=== PATIENT | male | born 1950 | race Caucasian/White ===

== ENCOUNTER → 2019-09-24 14:47 | Outpatient (BNVA) | payer MEDICARE, SELFPAY | PROVIDERS: Family Provider Internal Medicine; PCP Internal Medicine; Referring Provider Internal Medicine; Visit Provider Urology | DX: R97.20 Elevated prostate specific antigen [PSA] (principal) | CPT/HCPCS: 81001 ==

== ENCOUNTER → 2019-10-04 14:07 | Outpatient (BNVA) | payer MEDICARE, SELFPAY | PROVIDERS: Family Provider Internal Medicine; PCP Internal Medicine; Visit Provider Urology | DX: R97.20 Elevated prostate specific antigen [PSA] (principal) | CPT/HCPCS: 88305 ==

== ENCOUNTER 2019-10-18 07:02 | Outpatient (CLI) | payer MEDICARE, SELFPAY ==
--- NOTE | 2019-10-18 07:34 | CT_ITS ---
WS: [id number] CT ABDOMEN PELVIS TECHNIQUE: Noncontrast CT of the abdomen and contrast-enhanced CT of the abdomen and pelvis with roderick nal and sagittal reformatted images. CLINICAL INFORMATION: ELEVATED PSA COMPARISON: None. DLP: 1049.[address] scans at [facility] use at least one of these dose optimization techniques: automat ed exposure control; mA and/or kV adjustment per patient size (includes targeted exams where dose is matched to clinical indication); or iterative reconstruction. FINDINGS: Liver is normal in appearance. Small right hepatic cyst. Normal portal vein and splenic vein. Normal spleen. Small esophageal hiatal hernia. Small nodule or fibrosis right lower lobe measuring 6 mm. Rig ht adrenal gland is normal. Left adrenal adenoma measuring 16 mm. Normal renal parenchymal enhancemen t. No hydronephrosis. Mild atrophy of the pancreas. Normal caliber abdominal aorta. No periaortic lym phadenopathy. Aortic calcification. Diffuse bladder wall thickening likely due to bladder outlet obstruction. Heterogeneously enhancing e nlarged prostate measuring 3.2 x 3.5 x 5.2 CCM. Recommend correlation PSA. No pelvic or inguinal lymp hadenopathy. Disc osteophyte complex L5-S1 with mild central canal stenosis and moderate bilateral fo raminal narrowing. Slight retrolisthesis L2 on L3 with moderate central canal stenosis. CT/CT abdomen pelvis wo/w [id number] IMPRESSION: 1. Normal renal parenchymal enhancement. No hydronephrosis. 2. Diffuse bladder wall thickening likely due to bladder outlet obstruction. H eterogeneously enhancing enlarged prostate measuring 3.2 x 3.5 x 5.2 CCM. Recom mend correlation PSA. 3. Noncalcified nodule right lower lobe measuring 6 mm. Recommend 6 month foll ow-up chest CT. 4. Incidental left adrenal adenoma measuring 16 mm. 5. Tiny hepatic cyst. 6. No abdominal or pelvic lymphadenopathy.
[2019-10-18 08:23] LABS: Blood Urea Nitrogen 12 mg/dL (8-23); Glomerular Filtration Rate 74.5 mL/min (90-130)
[2019-10-18] MEDS: iohexol 300 mg/mL 100 mL Btl IV (08:47)
== END 2019-10-18 07:03 | disposition home or self-care (01) ==
LOC: RAD 07:04
PROVIDERS: PCP Internal Medicine; Visit Provider Urology
DX: R97.20 Elevated prostate specific antigen [PSA] (principal); K76.89 Other specified diseases of liver; D35.02 Benign neoplasm of left adrenal gland
CPT/HCPCS: 74178; 82565; 84520

== ENCOUNTER 2019-10-31 08:28 | Outpatient (CLI) | payer MEDICARE, SELFPAY ==
--- NOTE | 2019-10-31 11:00 | NM_ITS ---
WS: [id number] NUCLEAR MEDICINE BONE SCAN Radiopharmaceutical: 25.0 Tc-99m MDP mCi IV Injection site: Right antecubital Postinjection imaging delay: hr CLINICAL INFORMATION: ELEVATED PSA COMPARISON: None. 1 FINDINGS: Bone lesions: There are no osseous lesions suspicious for metastatic disease. Soft tissue contours: Normal. Kidneys: Normal. Other findings: Focal intense bony uptake involving the base of the first metatarsal at the TMT joint likely degenerative or inflammatory. Recommend correlation with first metatarsal pain. NM/NM bone scan whole body* [id number] IMPRESSION: 1. No evidence of osseous metastatic disease. 2. Focal intense bony uptake involving the base of first metatarsal at the TMT joint likely degenerative or inflammatory. Recommend correlation with first me tatarsal bone. This is not typical for metastatic disease.
== END 2019-10-31 08:29 | disposition home or self-care (01) ==
LOC: NM 08:31
PROVIDERS: PCP Internal Medicine; Visit Provider Urology
DX: R97.20 Elevated prostate specific antigen [PSA] (principal)
CPT/HCPCS: 78306; A9561

== ENCOUNTER 2019-11-06 11:49 | Outpatient (CLI) | payer MEDICARE, SELFPAY ==
--- NOTE | 2019-11-06 15:23 | ONC CON_ITS ---
Dr. Torres New Patient Note Patient: Ander Odonnell Unit #: [id number]: 1950 Dicatated By: Consuelo Torres M.D.Date of Visit: Nov 06, 2019 Onc MED New Patient/Consult Referring Physician: Dr. Daniel Singletary M.D. History of Present Illness: Mr. 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 Patient underwent CT scan of abdomen pelvis on October 18, 2019 which shows no evidence of pelvic lymphadenopathy and prostate gland size 3.2 x 3.5 x 5.2 cm and noncalcified nodule right lower lobe lung, about 6 cm and a follow-up CT scan in 6 months was recommended. Bone scan done on October 31, 2019 shows no evidence of metastatic disease. Patient was started on bicalutamide 50 mg p.o. daily by urology on October 18, 2019 Patient denies any specific complaints, no fever chills, no nausea or vomiting, no hematuria or dysuria, no melena or hematochezia, no diarrhea or constipation, no hot flashes, tolerating bicalutamide well. Patient used to drink 10-12 beers a day but quit about 6 months ago. And still smoke about a pack a day. Past Medical History: There is no documented medical history. Past Surgical History: Mr. Odonnell's surgical/procedural history consists of TRUSP/bx in 2019. Medications: Amitriptyline HCl 1 Tablet (of 100 mg) Oral daily, Bilberry 1 Capsule Oral daily, blackseed oil 1 Capsule Oral daily, HYDROcodone-Acetaminophen 1 Tablet (of 10-325 mg) Oral q 6 hours PRN, Thiamine HCl 1 Capsule (of 50 mg) Oral daily Allergies: amLODIPine Besylate and Gabapentin. Social History: Mr. Odonnell is . He is a daily smoker who has smoked 1.0 pack/day for 51 years. He is a former drinker. He has indicated exposure to the following products: cigarettes. Family History: Mr. Odonnell's mother is : colon cancer. Mr. Odonnell's father at age 27: drowning. Review Of Symptoms: Constitutional - Appetite is good and weight is stable. No fever, night sweats, or hot flashes. ECOG score is, ENMT - No sinus congestion/drainage. No mouth sores. No sore throat or difficulty swallowing, Hematologic/Lymphatic - No abnormal bruising or bleeding, Respiratory - No shortness of breath. No cough. No pleuritic pain or hemoptysis, Cardiovascular - No angina pain. No palpitations, Gastrointestinal - No nausea or vomiting. No heartburn or acid reflux. No diarrhea or constipation. No blood in the stool or black stools, Genitourinary (M) - No dysuria or hematuria. No urinary frequency. No urgency or incontinence, Musculoskeletal - No joint or bone pain, Neurologic - No headache or dizziness. No numbness or tingling. No other focal neurologic symptoms, Psychiatric - No anxiety or depression. No insomnia. Vital Signs: Performed on Nov 06, 2019 14:10: 71.00 in, 155.4 lbs, 98.9 F, 98, 24, 165/92 mm(hg) (HIGH), 98 %, 0, Performed on Nov 06, 2019 14:10: 21.674 kg/m2, and Performed on Nov 06, 2019 13:25: 1.89 sq.m. Performance Status: 0 - Fully active, able to carry on all predisease activities without restrictions. (ECOG) Physical Examination: ENMT - No mouth sores, no thrush, no jaundice, Respiratory - Lungs are clear to auscultation, Cardiovascular - Regular rate and rhythm of heart, Abdomen - Soft, bowel sounds, Extremities - No visible edema. Lab/Imaging: Most recent lab results are not available for this patient. Impression: Prostatic adenocarcinoma per TRUS P/biopsy done on October 04, 2019 which showed high-volume, high risk aggressive prostate cancer with highest [place] score 5+4 and 90-100% of 3 cores, and also shows Jose score 4+3 in 5 cores, 100% involvement and 4+4 in 2 cores with 100% involvement, with perineural invasion and 1 core( right mid) with a small focus atypical acinar proliferation CT scan of abdomen done on October 18, 2019 shows no evidence of pelvic lymphadenopathy, large prostate gland 3.2 x 3.5 x 5.2 cm. Noncalcified nodule right lower lobe measuring 6 mm follow-up scan in 6 months was recommended. Bone scan done on October 31, 2019 showed no evidence of bone mets. PSA was 50 at the time of diagnosis Plan: -Discussed with patient regarding his disease status and treatment options, clinically patient has high risk prostate cancer, PSA 50, Jose score 5+4 and 3 cores, 90-100% involved with perineural involvement but his CT scan of abdomen pelvis as well as bone scan showed no evidence of metastatic disease, patient is not a candidate for surgical intervention but combined ADT/radiation therapy. Patient is already started on daily bicalutamide on October 18, 2019, we will start Zoladex 10.8 mg every 3 months as neoadjuvant and then continue concurrent with radiation therapy followed by adjuvant therapy for 2 to 3 years as patient is a high risk category. All the side effects possible benefits associated with ADT including but not limited to generalized weakness and fatigue, hair loss, decreased libido, erectile dysfunction, gynecomastia, bone demineralization, hot flashes, were mentioned further teaching will done by chemotherapy nurse, will obtain approval from his insurance prior to the treatment and then I will see him back 1 month after dose of Zoladex with PSA and testosterone and baseline CBC CMP. Patient will see radiation oncology, case was discussed with radiation oncology and planning is to start radiation to his prostate in 10 to 12 weeks of ADT Signed By: Consuelo Torres M.D. <<Signature on File>>
--- NOTE | 2019-11-07 10:30 | N.ONRAD NP_ITS ---
Radiation Oncology New Patient Visit Patient: Ander Odonnell MR#: [id number] : 1950 Age: 69 Sex: Male Dictated by: Dr. Elias Navarro Date of Service: 11/06/2019 Referring Physician(s) : Dr. Daniel Singletary Primary Site: Prostate Diagnosis: Very High Risk Group prostate adenocarcinoma, pretreatment PSA 50.2 ng/mL, Leroy grade 5+4, 13/15 positive cores, extensive perineural invasion, T2b N0 M0 Purpose of Visit: Discuss the role of radiotherapy with curative intent. History of Present Illness: The patient is a 69-year-old male with an elevated PSA of 50.2 ng/mL (09/11/2019) and an abnormal digital rectal examination which revealed concern for tumor involvement on both sides of the prostate. A subsequent transrectal ultrasound guided prostate biopsy (Dr. Singletary 10/07/2019) revealed Jose score 5+4, grade group 5, extensive perineural and epineural invasion, and 13 out of 15 cores were positive for disease. A CT scan of the abdomen pelvis (10/18/2019) revealed a 3.2 x 3.5 x 5.2 cm enlarged prostate with no extracapsular extension, or corresponding pelvic/inguinal lymphadenopathy. A bone scan on (10/31/2019) revealed no evidence of osseous metastatic disease. The patient was initiated on Casodex and subsequently referred to medical oncology and radiation oncology. In consultation today, the patient reports chronic erectile dysfunction unresponsive to Viagra or Levitra, and an international prostate symptom score of 16 indicating moderate urinary symptoms. The patient reports nocturia once per night, significant urinary frequency, a weak stream, and straining approximately half the time. Chief Complaint / History of Present Illness: Current Medications: Amitriptyline HCl, bicalutamide, bilberry, blackseed oil, hYDROcodone-Acetaminophen, thiamine HCl. Allergies: Gabapentin and amLODIPine Besylate. Medical History: No history of collagen vascular disease. No previous radiation therapy. Surgical History: TRUSP/bx on 10/04/2019. Family History: Father is at age 27 having experienced drowning. Mother is having experienced colon cancer. Social History: Last screened on 11/06/2019 - Current every day smoker 1.0 pack/day for 51 years (51 pack years). Last screened on 10/18/2019 - Past drinker. Patient indicated use of the following products: cigarettes. Current Complaints / Review of Systems: ROS Constitutional - Appetite is good and weight is stable. No fever, night sweats, or hot flashes. ECOG score is. ROS ENMT - No sinus congestion/drainage. No mouth sores. No sore throat or difficulty swallowing. ROS Hematologic/Lymphatic - No abnormal bruising or bleeding. ROS Respiratory - No shortness of breath. No cough. No pleuritic pain or hemoptysis. ROS Cardiovascular - No angina pain. No palpitations. ROS Gastrointestinal - No nausea or vomiting. No heartburn or acid reflux. No diarrhea or constipation. No blood in the stool or black stools. ROS Genitourinary (M) - No dysuria or hematuria. No urinary frequency. No urgency or incontinence. ROS Musculoskeletal - No joint or bone pain. ROS Neurologic - No headache or dizziness. No numbness or tingling. No other focal neurologic symptoms. ROS Psychiatric - No anxiety or depression. No insomnia.. Vital Signs: Performed on 11/06/2019 1:25 PM Height - 71.00 in, Weight - 155.4 lbs (high), BSA - 1.89 sq.m, BMI - 21.67, Temperature - 98.9 f (high), Pulse - 98 /min, Respiration - 24 /min, O2 Sat - 98 %, Pain - 0, BP - 165/ 92 mm(hg)(high), Performed on 11/06/2019 2:10 PM BMI - 21.674 kg/m2, Height - 71.00 in, Weight - 155.4 lbs, Temperature - 98.9 f, Pulse - 98, Respiration - 24, O2 Sat - 98 %, Pain - 0 and BP - 165/ 92 mm(hg)(high). Physical Exam: GENERAL:??? The patient is alert, and in no acute distress. HEENT:??? Head is normocephalic. Face is symmetric. External ocular movements are intact. Sclera and conjunctivae are non erythematous. NECK:??? Trachea is midline.??? Thyroid is not enlarged by palpation.??? Digital rectal examination was deferred today per the patient???s request. LYMPH NODES:??? There is no cervical or supraclavicular adenopathy bilaterally. LUNGS:??? Clear to auscultation bilaterally. Respiratory movement is unlabored. HEART:??? Regular rate and rhythm. EXTREMITIES:??? No deformities. NEUROLOGIC:??? Gait and station are normal.??? The patient is well coordinated and strength is equal bilaterally. DESIGN TECH:??? Cranial nerves II-XII are intact and without focal deficits.??? Psych: Affect is normal. Skin: Cursory review of the skin reveals no obvious lesions concerning for malignancy. Performance Status: 0 - Fully active, able to carry on all predisease activities without restrictions. (ECOG) Impression: The patient is a 69-year-old male with a 16.5 year life expectancy per Social Security data tables and a new diagnosis of very high risk adenocarcinoma of the prostate, Jose grade 5+4, grade group 5, pretreatment PSA 50.2 ng/mL, positive extensive perineural invasion, and 13 out of 15 cores were involved with tumor. Pretreatment international prostate symptom score was 19, and prior to initiation of treatment, the patient had chronic erectile dysfunction unresponsive to Viagra/Levitra. This case has been discussed with Dr. Torres, who concurs with a plan of neoadjuvant androgen deprivation therapy, followed by androgen deprivation therapy concurrent with definitive radiation therapy, followed by long-term androgen deprivation therapy. The patient was recently initiated on Casodex therapy, and Dr. Torres is in the process of getting insurance approval to find long-term androgen deprivation therapy. Given the large size of this patient's prostate, I recommend delaying radiation therapy for 3 months in the hopes that combined androgen deprivation therapy will cause the prostate to reduce in size and therefore reduce radiation treatment jimenez. We discussed radiation logistics, treatment side effects, prognosis, and treatment alternatives. Although the final radiation dose and fractionation schedule will be decided upon by the treating radiation oncologist, I recommend treating the prostate, seminal vesicles, and draining lymphatics to 45 Gy in 1.8 Gy fractions, followed by a boost to the prostate and proximal seminal vesicles to an aggregate dose of 79.2 Gy in 44 fractions in accordance with corresponding dosimetric objectives established in the RTOG 0924 protocol. The patient has been instructed to return in 3 months to begin radiation therapy planning. Signed by: Elias Navarro MD 11/07/2019 10:31:49 AM <<Signature on File>> Time spent with patient: CPT Code: CPT Code:
== END 2019-11-06 11:50 | disposition home or self-care (01) ==
LOC: ONCMED 11:52
PROVIDERS: Absent Provider Radiology Radiation Oncology; PCP Internal Medicine; Visit Provider Internal Medicine Hematology & Oncology
DX: C61 Malignant neoplasm of prostate (principal); Z79.899 Other long term (current) drug therapy
CPT/HCPCS: 99203; G0463

== ENCOUNTER 2019-11-14 14:45 | Outpatient (CLI) | payer MEDICARE, SELFPAY ==
[2019-11-14] MEDS: lidocaine 1% INJ 20 mL INJECTION (15:01)
[2019-11-14] MEDS: goserelin acetate 10.8 mg Implant IM (15:11)
== END 2019-11-14 14:46 | disposition home or self-care (01) ==
LOC: ONCMED 14:51
PROVIDERS: PCP Internal Medicine; Visit Provider Radiology Radiation Oncology
DX: C61 Malignant neoplasm of prostate (principal)
CPT/HCPCS: 96372; 96402; J9202

== ENCOUNTER 2019-12-16 05:54 | Outpatient (CLI) | payer MEDICARE, SELFPAY ==
[2019-12-16 12:55] LABS: Prostate Specific Antigen 0.978 ng/mL (0-4); Testosterone Total 2.5 ng/dL (193-740)
[2019-12-16 13:50] LABS: Basophils % 0.5 %; Eosinophils # 0.5 10^3/uL (0.0-0.8); Hematocrit 38.8 % (42.0-52.0); Hemoglobin 13.4 g/dL (11.7-16.6); Lymphocytes # 4.5 10^3/uL (0.8-4.8); Lymphocytes % 51.6 %; Mean Corpuscular HGB Conc 34.5 g/dL (30.0-36.0); Mean Corpuscular Hemoglobin 33.3 pg (28.0-34.0); Mean Corpuscular Volume 96.5 fL (80-94); Mean Platelet Volume 10.8 fL (7.4-10.4); Monocytes # 0.9 10^3/uL (0.2-0.9); Monocytes % 10.4 %; Neutrophils # 2.74 10^3/uL (1.8-7.7); Neutrophils % 31.4 %; Nucleated Red Blood Cells % 0 %; Platelet Count 227 10^3/cmm (130-400); Red Blood Count 4.02 10^6/uL (4.1-5.3); Red Cell Distribution Width 11.9 % (12.1-15.1); White Blood Count 8.7 10^3/uL (4.0-10.0)
[2019-12-16 13:59] LABS: Thyroid Stimulating Hormone 3.34 uIU/mL (0.27-4.20)
--- NOTE | 2019-12-16 16:43 | ONC FU_ITS ---
Dr. Torres follow up note Patient: Ander Odonnell Unit #: [id number]: 1950 Dicatated By: Consuelo Torres M.D.Date of Visit:Dec 16, 2019 Onc Med Follow-up/Prog Note History of Present Illness: Mr. 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 Patient underwent CT scan of abdomen pelvis on October 18, 2019 which shows no evidence of pelvic lymphadenopathy and prostate gland size 3.2 x 3.5 x 5.2 cm and noncalcified nodule right lower lobe lung, about 6 cm and a follow-up CT scan in 6 months was recommended. Bone scan done on October 31, 2019 shows no evidence of metastatic disease. Patient was started on bicalutamide 50 mg p.o. daily by urology on October 18, 2019And Zoladex every 3 month was added on November 14, 2019 Patient used to drink 10-12 beers a day but quit about 6 months ago. And still smoke about a pack a day. Came for follow-up, complaining of generalized weakness and fatigue, no nausea or vomiting, no diarrhea constipation, no fever chills, no dysuria or hematuria, as per patient since he been taking prostate cancer pill is weakness is getting worse. Denies any hot flashes otherwise tolerating Casodex/Zoladex well but with expected side effects Medications: Amitriptyline HCl 1 Tablet (of 100 mg) Oral daily, Bilberry 1 Capsule Oral daily, blackseed oil 1 Capsule Oral daily, HYDROcodone-Acetaminophen 1 Tablet (of 10-325 mg) Oral q 6 hours PRN, Thiamine HCl 1 Capsule (of 50 mg) Oral daily Allergies: amLODIPine Besylate and Gabapentin. Review of Systems: Review of Systems is not available for this patient. Vital Signs: Performed on Dec 16, 2019 13:06 Height - 71.00 in Weight - 155.8 lbs (HIGH) BSA - 1.90 sq.m BMI - 21.73 Temperature - 99.2 F (HIGH) Pulse - 87 /min Respiration - 18 /min BP - 149/92 mm(hg) (HIGH) O2 Sat - 99 % Pain - 6 Performance Status: 1 - No physically strenuous activity, but ambulatory and able to carry out light or sedentary work (e.g. office work, light house work). (ECOG) Physical Examination: ENMT - No mouth sores, no thrush, no jaundice, Respiratory - Lungs are clear to auscultation, Cardiovascular - Regular rate and rhythm of heart, Abdomen - Soft, bowel sounds present, Extremities - No visible edema. Lab/Imaging: Test performed on Dec 16, 2019 11:36 Testosterone, Total 2.5 ng/dL PSA 0.978 ng/mL Impression: Prostatic adenocarcinoma per TRUS P/biopsy done on October 04, 2019 which showed high-volume, high risk aggressive prostate cancer with highest Jose score 5+4 and 90-100% of 3 cores, and also shows Jose score 4+3 in 5 cores, 100% involvement and 4+4 in 2 cores with 100% involvement, with perineural invasion and 1 core( right mid) with a small focus atypical acinar proliferation CT scan of abdomen done on October 18, 2019 shows no evidence of pelvic lymphadenopathy, large prostate gland 3.2 x 3.5 x 5.2 cm. Noncalcified nodule right lower lobe measuring 6 mm follow-up scan in 6 months was recommended. Bone scan done on October 31, 2019 showed no evidence of bone mets. PSA was 50 at the time of diagnosis Started on Casodex on October 18, 2019 and Zoladex on November 14, 2019, Casodex was discontinued on December 16, 2019 because of progressive generalized weakness and fatigue, patient is awaiting radiation therapy Plan: Discussed with patient regarding his last PSA is 0.978 and testosterone is 2.5 compared to PSA around 50 at the time of diagnosis Clinically, patient is doing reasonably well but now concern with progressive generalized weakness and fatigue since started on Casodex and Zoladex was added on November 14, 2019. His PSA showed excellent response no 0.978 compared to around 50 at the time of diagnosis, patient has taken Casodex for more than 2 months and now awaiting radiation therapy, at this point we will consider discontinue Casodex, with that his generalized weakness and fatigue may improve in the meantime we will also repeat CBC and TSH to rule out other possible causes of generalized weakness and fatigue. Patient return to clinic in 2 months with CBC CMP and PSA Signed By: Consuelo Torres M.D. <<Signature on File>>
== END 2019-12-16 05:55 | disposition home or self-care (01) ==
LOC: ONCMED 05:56
PROVIDERS: PCP Internal Medicine; Visit Provider Internal Medicine Hematology & Oncology
DX: C61 Malignant neoplasm of prostate (principal); R97.20 Elevated prostate specific antigen [PSA]; R53.1 Weakness; R53.83 Other fatigue; Z79.818 Long term (current) use of other agents affecting estrogen receptors and estrogen levels
CPT/HCPCS: 36415; 84153; 84403; 84443; 85025; 99214

== ENCOUNTER 2020-03-06 05:36 | Outpatient (RCR) | payer MEDICARE, SELFPAY ==
--- NOTE | 2020-02-11 | CT_ITS ---
Radiation Therapy Planning CT images; total exam DLP: 1048.29 mGy-cm MTDD
[2020-02-11 10:02] LABS: Basophils % 0.5 %; Eosinophils # 0.6 10^3/uL (0.0-0.8); Eosinophils % 6.5 %; Lymphocytes # 3.7 10^3/uL (0.8-4.8); Lymphocytes % 42.5 %; Mean Corpuscular HGB Conc 34.2 g/dL (30.0-36.0); Mean Corpuscular Hemoglobin 33.2 pg (28.0-34.0); Mean Corpuscular Volume 97.2 fL (80-94); Mean Platelet Volume 10.4 fL (7.4-10.4); Monocytes # 0.9 10^3/uL (0.2-0.9); Monocytes % 9.7 %; Neutrophils # 3.54 10^3/uL (1.8-7.7); Neutrophils % 40.6 %; Nucleated Red Blood Cells % 0 %; Platelet Count 229 10^3/cmm (130-400); Red Blood Count 3.91 10^6/uL (4.1-5.3); Red Cell Distribution Width 12.1 % (12.1-15.1); White Blood Count 8.7 10^3/uL (4.0-10.0)
[2020-02-11 10:30] LABS: Alanine Aminotransferase 9 U/L (0-41); Albumin Level 4.3 g/dL (3.5-5.2); Alkaline Phosphatase 82 IU/L (40-130); Anion Gap 10.7 (5-19); Aspartate Amino Transferase 13 U/L (0-40); Blood Urea Nitrogen 11 mg/dL (8-23); Calcium 9.4 mg/dL (8.5-10.5); Carbon Dioxide 30 mmol/L (22-29); Chloride 95 mmol/L (98-107); Globulin 3.2 g/dL (1.3-4.6); Glomerular Filtration Rate 96.4 mL/min (90-130); Glucose 147 mg/dL (65-115); Osmolality Calculated 276 mOsm/kg (285-295); Potassium 3.7 mmol/L (3.5-5.1); Sodium 132 mmol/L (136-145); Total Bilirubin 0.2 mg/dL (0.15-1.2); Total Protein 7.5 g/dL (6.6-8.7)
[2020-02-11] MEDS: lidocaine 1% INJ 20 mL INJECTION (15:39)
[2020-02-11] MEDS: goserelin acetate 10.8 mg Implant IM (15:50)
--- NOTE | 2020-02-11 17:01 | ONC FU_ITS ---
Dr. Torres follow up note Patient: Ander Odonnell Unit #: [id number]: 1950 Dicatated By: Consuelo Torres M.D.Date of Visit:Feb 11, 2020 Onc Med Follow-up/Prog Note History of Present Illness: Mr. Ander Odonnell, is a 69-year-old gentleman with a history of elevated PSA, around 50 and abnormal BRUNO underwent TRUS P/biopsy on October 04, 2019 which showed high-grade AROMATHERAPIST involving 10 out of 11 cores with Jose score ranging from 4+3 in 5 cores, 100% involvement and 4+4, and 2 cores 100% involvement 5.4 in 3 cores 9200% involvement and extensive perineural invasion seen. Patient underwent CT scan of abdomen pelvis on October 18, 2019 which shows no evidence of pelvic lymphadenopathy and prostate gland size 3.2 x 3.5 x 5.2 cm and noncalcified nodule right lower lobe lung, about 6 cm and a follow-up CT scan in 6 months was recommended. Bone scan done on October 31, 2019 shows no evidence of metastatic disease. Patient was started on bicalutamide 50 mg p.o. daily by urology on October 18, 2019 AndAnd discontinued on December 16, 2019 Zoladex every 3 month was started on November 14, 2019 Patient used to drink 10-12 beers a day but quit about 6 months ago. And still smoke about a pack a day .Came for follow-up, denies any specific complaint except hot flashes otherwise tolerating 3 monthly Zoladex well. No new bony pains, no nausea or vomiting, no diarrhea or constipation, patient has seen radiation oncology recently and now being simulated. Medications: Amitriptyline HCl 1 Tablet (of 100 mg) Oral daily, Bilberry 1 Capsule Oral daily, blackseed oil 1 Capsule Oral daily, HYDROcodone-Acetaminophen 1 Tablet (of 10-325 mg) Oral q 6 hours PRN, Thiamine HCl 1 Capsule (of 50 mg) Oral daily Allergies: amLODIPine Besylate and Gabapentin. Review of Systems: Review of Systems is not available for this patient. Vital Signs: Performed on Feb 11, 2020 13:42 Height - 71.00 in Weight - 161.0 lbs (HIGH) BSA - 1.92 sq.m BMI - 22.46 Temperature - 98.9 F (HIGH) Pulse - 105 /min (HIGH) Respiration - 22 /min BP - 167/92 mm(hg) (HIGH) O2 Sat - 98 % Pain - 0 Performance Status: 0 - Fully active, able to carry on all predisease activities without restrictions. (ECOG) Physical Examination: ENMT - No mouth sores, no thrush, no jaundice, Respiratory - Lungs are clear to auscultation, Cardiovascular - Regular rate and rhythm of heart, Abdomen - Soft, bowel sounds present, Extremities - No visible edema. Lab/Imaging: Test performed on Dec 16, 2019 13:30 WBC 8.7 10 3/uL RBC 4.02 10 6/uL HGB 13.4 g/dL HCT 38.8 % MCV 96.5 fL MCH 33.3 pg MCHC 34.5 g/dL RDW 11.9 % Platelet Count 227 10 3/cmm MPV 10.8 fL Neutrophils 2.74 10 3/uL Lymphocytes 4.5 10 3/uL Monocytes 0.9 10 3/uL Eosinophils 0.5 10 3/uL Basophils 0.0 10 3/uL Neutrophil % 31.4 % Lymphocyte % 51.6 % Monocyte % 10.4 % Eosinophil % 6.0 % Basophils % 0.5 % NRBC % 0 % Test performed on Dec 16, 2019 11:36 Testosterone, Total 2.5 ng/dL TSH 3.34 uIU/mL PSA 0.978 ng/mL Impression: Prostatic adenocarcinoma per TRUS P/biopsy done on October 04, 2019 which showed high-volume, high risk aggressive prostate cancer with highest [place] score 5+4 and 90-100% of 3 cores, and also shows [place] score 4+3 in 5 cores, 100% involvement and 4+4 in 2 cores with 100% involvement, with perineural invasion and 1 core( right mid) with a small focus atypical acinar proliferation CT scan of abdomen done on October 18, 2019 shows no evidence of pelvic lymphadenopathy, large prostate gland 3.2 x 3.5 x 5.2 cm. Noncalcified nodule right lower lobe measuring 6 mm follow-up scan in 6 months was recommended. Bone scan done on October 31, 2019 showed no evidence of bone mets. PSA was 50 at the time of diagnosis Started on Casodex on October 18, 2019 and Zoladex on November 14, 2019, Casodex was discontinued on December 16, 2019 because of progressive generalized weakness and fatigue, patient is awaiting radiation therapy Plan: Discussed with patient regarding his labs white blood count 8.7 hemoglobin 13 hematocrit 38 platelets 229,000 CMP within normal limits except sodium 132 and PSA is 0.22 compared to 0.97 on December 16, 2019 and 50 at the time of diagnosis Clinically, patient is doing well with no new signs symptoms, tolerating 3 monthly Zoladex alone well but with expected side effects e.g. off and on hot flashes. His follow-up lab work-up shows excellent response as PSA continue to improve now down to 0.22 compared to 0.9 in December 2019 and more than 50 at time of diagnosis. We will proceed with his next 3 monthly dose of Zoladex today and then he will return to clinic in 3 months with PSA. And will continue with 3 monthly Zoladex for 2 to 3 years as patient is a high risk for recurrence. Patient is being simulated for radiation therapy to the prostate. Signed By: Consuelo Torres M.D. <<Signature on File>>
--- NOTE | 2020-02-17 10:45 | ONCRAD TMN_ITS ---
Radiation Oncology Treatment Management Note Patient Name: Ander Odonnell Date of : 1950 Date of Service: 02/17/2020 Attending Physician: Ortega Dennis M.D. 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 His pretreatment PSA was 50.2 ng/mL. A TRUS biopsy identified a Jose???s Score of 5+4=9. Neoadjuvant GnRh agonist pharmacotherapy (Zoladex 10.8mg) was initiated on November 132019. The patient has received 2 Gy of a prescribed 46 Villanueva to the prostate and regional lymph nodes with an intensity modulated radiotherapy plan utilizing a step and shoot treatment technique. An additional 32 Villanueva will be delivered to the prostate gland subsequent to the initial jimenez. Upon review of systems, he denied any gastrointestinal complaints related to radiotherapy. On physical examination, the patient weighed 163 lbs. His temperature was 99 ???F with a blood pressure of 171/94 mmHg. The pulse was 82 bpm and his respiratory rate was 18. No erythema within the treatment jimenez. Continue pelvic radiotherapy as prescribed. Signed by: Dr. Ortega Dennis 02/17/2020 10:43:02 AM
[2020-02-21 14:30] LABS: Add Urine Culture? No; Bacteria Urine TRACE /hpf; Bilirubin Urine Neg (Negative); Blood Urine Neg (Negative); Glucose Urine UA Norm (Normal); Ketones Urine Negative (Negative); Leukocyte Esterase Urine Negative (Negative); Nitrate Urine Negative (Negative); Protein Urine Neg (Negative); RBC Urine 0-4 /hpf (0-2); Squamous Epithelial Cell Urine 0-4 /hpf (0-5); Urine Appearance Clear (CLEAR); Urine Color Yellow (Yellow); Urobilinogen Urine Norm (Negative); WBC Urine 0-4 /hpf (0-5); pH Urine 6 (5-7)
--- NOTE | 2020-02-25 15:19 | ONCRAD TMN_ITS ---
Radiation Oncology Treatment Management Note Patient Name: Ander Odonnell Date of : 1950 Date of Service: 02/25/2020 Attending Physician: Ortega Dennis M.D. 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 His pretreatment PSA was 50.2 ng/mL. A TRUS biopsy identified a Jose???s Score of 5+4=9. Neoadjuvant GnRh agonist pharmacotherapy (Zoladex 10.8mg) was initiated on November 132019. The patient has received 14 Gy of a prescribed 46 Villanueva to the prostate and regional lymph nodes with an intensity modulated radiotherapy plan utilizing a step and shoot treatment technique. An additional 32 Villanueva will be delivered to the prostate gland subsequent to the initial jimenez. Upon review of systems, he denied any gastrointestinal complaints related to radiotherapy. On physical examination, the patient weighed 163 lbs. His temperature was 99.2 ???F with a blood pressure of 160/92 mmHg. The pulse was 97 bpm and his respiratory rate was 16. No erythema within the treatment jimenez. Continue pelvic radiotherapy as planned. Signed by: Dr. Ortega Dennis 02/25/2020 3:17:50 PM
--- NOTE | 2020-03-04 15:34 | ONCRAD TMN_ITS ---
Radiation Oncology Treatment Management Note Patient Name: Ander Odonnell Date of : 1950 Date of Service: 03/04/2020 Attending Physician: Ortega Dennis M.D. 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 His pretreatment PSA was 50.2 ng/mL. A TRUS biopsy identified a Jose???s Score of 5+4=9. Neoadjuvant GnRh agonist pharmacotherapy (Zoladex 10.8mg) was initiated on November 132019. The patient has received 22 Gy of a prescribed 46 Villanueva to the prostate and regional lymph nodes with an intensity modulated radiotherapy plan utilizing a step and shoot treatment technique. An additional 32 Villanueva will be delivered to the prostate gland subsequent to the initial jimenez. Upon review of systems, he described recurrent diarrhea (present for years) without blood or mucous. On physical examination, the patient weighed 163 lbs. His temperature was 99.2 ???F with a blood pressure of 160/92 mmHg. The pulse was 97 bpm and his respiratory rate was 16. No erythema within the treatment jimenez. Continue pelvic radiotherapy as prescribed. I will order a fecal calprotectin (Crohn???s Disease), TTG-IGA (Celiac Disease), ESR and CRP. Recent labs (CBC & CMP) were previously obtained during a prior medical oncology appointment. Signed by: Dr. Ortega Dennis 03/04/2020 3:32:38 PM
[2020-03-04 19:49] LABS: Erythrocyte Sedimentation Rate 49 mm/hr (0-10)
[2020-03-05 06:21] LABS: C Reactive Protein 10.3 mg/L (0.0-4.9)
== END 2020-03-08 23:59 | disposition home or self-care (01) ==
LOC: ONCMED 05:36
PROVIDERS: Internal Medicine Hematology & Oncology; Absent Provider Radiology Radiation Oncology; PCP Internal Medicine; Visit Provider Radiology Radiation Oncology
DX: Z51.0 Encounter for antineoplastic radiation therapy (principal); C61 Malignant neoplasm of prostate; R97.20 Elevated prostate specific antigen [PSA]; Z79.890 Hormone replacement therapy
CPT/HCPCS: 77300; 77301; 77334; 77336; 77338; 77385; 77386; 77470; 80053; 81001; 83516; 83993; 84153; 85025; 85651; 86140; 96372; 96402; 99215; J9202

== ENCOUNTER 2020-04-03 05:49 | Outpatient (RCR) | payer MEDICARE, SELFPAY ==
--- NOTE | 2020-03-10 14:41 | ONCRAD TMN_ITS ---
Radiation Oncology Treatment Management Note Patient Name: Ander Odonnell Date of : 1950 Date of Service: 03/10/2020 Attending Physician: Ortega Dennis M.D. 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 His pretreatment PSA was 50.2 ng/mL. A TRUS biopsy identified a [place]???s Score of 5+4=9. Neoadjuvant GnRh agonist pharmacotherapy (Zoladex 10.8mg) was initiated on November 132019. The patient has received 30 Gy of a prescribed 46 Villanueva to the prostate and regional lymph nodes with an intensity modulated radiotherapy plan utilizing a step and shoot treatment technique. An additional 32 Villanueva will be delivered to the prostate gland subsequent to the initial jimenez. Upon review of systems, he described minimal diarrhea with Lomotil (one daily) but new onset nocturia (6-7 times). On physical examination, the patient weighed 155 lbs. His temperature was 99.5 ???F with a blood pressure of 164/101 mmHg. The pulse was 99 bpm and his respiratory rate was 20. No erythema within the treatment jimenez. Continue pelvic radiotherapy as planned. I will recommend NSAID trial for nocturia. Signed by: Dr. Ortega Dennis 03/10/2020 2:40:06 PM
--- NOTE | 2020-03-17 15:06 | ONCRAD TMN_ITS ---
Radiation Oncology Treatment Management Note Patient Name: Ander Odonnell Date of : 1950 Date of Service: 03/17/2020 Attending Physician: Ortega Dennis M.D. 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 His pretreatment PSA was 50.2 ng/mL. A TRUS biopsy identified a [place]???s Score of 5+4=9. Neoadjuvant GnRh agonist pharmacotherapy (Zoladex 10.8mg) was initiated on November 132019. The patient has received 40 Gy of a prescribed 46 Villanueva to the prostate and regional lymph nodes with an intensity modulated radiotherapy plan utilizing a step and shoot treatment technique. An additional 32 Villanueva will be delivered to the prostate gland subsequent to the initial jimenez. Upon review of systems, he described continued diarrhea with Lomotil (one daily) and slight improvement of nocturia (5 times) with Flomax 0.4 mg. On physical examination, the patient weighed 154lbs. His temperature was 99.5 ???F with a blood pressure of 150/97 mmHg. The pulse was 103 bpm and his respiratory rate was 18. No erythema within the treatment jimenez. Continue pelvic radiotherapy as prescribed. I will refer him to a statistics tutor for further evaluation related to an elevated Calprotectin level of 229 mcg/g (possible Crohn???s Disease), Signed by: Dr. Ortega Dennis 03/17/2020 3:04:28 PM
--- NOTE | 2020-03-26 11:22 | ONCRAD TMN_ITS ---
Radiation Oncology Treatment Management Note Patient Name: Ander Odonnell Date of : 1950 Date of Service: 03/26/2020 Attending Physician: Ortega Dennis M.D. 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 His pretreatment PSA was 50.2 ng/mL. A TRUS biopsy identified a Jose???s Score of 5+4=9. Neoadjuvant GnRh agonist pharmacotherapy (Zoladex 10.8mg) was initiated on November 132019. The patient has received 46 Gy of a prescribed 46 Villanueva to the prostate and regional lymph nodes with an intensity modulated radiotherapy plan utilizing a step and shoot treatment technique. An additional 32 Villanueva will be delivered to the prostate gland subsequent to the initial jimenez. Upon review of systems, he reported improvement of nocturia (3 times) with Flomax 0.8 mg. On physical examination, the patient weighed 161 lbs. His temperature was 98.7 ???F with a blood pressure of 144/97 mmHg. The pulse was 109 bpm and his respiratory rate was 18. No erythema within the treatment jimenez. Continue pelvic radiotherapy as planned. Signed by: Dr. Ortega Dennis 03/26/2020 11:21:08 AM
--- NOTE | 2020-03-31 14:51 | ONCRAD TMN_ITS ---
Radiation Oncology Treatment Management Note Patient Name: Ander Odonnell Date of : 1950 Date of Service: 03/31/2020 Attending Physician: Ortega Dennis M.D. 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 His pretreatment PSA was 50.2 ng/mL. A TRUS biopsy identified a Jose???s Score of 5+4=9. Neoadjuvant GnRh agonist pharmacotherapy (Zoladex 10.8mg) was initiated on November 132019. The patient has received 52 Gy of a prescribed 78 Gy to the prostate gland with an intensity modulated radiotherapy plan utilizing a step and shoot treatment technique. Upon review of systems, nocturia has stabilized with Flomax. On physical examination, the patient weighed 157 lbs. His temperature was 98.8 ???F with a blood pressure of 136/91 mmHg. The pulse was 102 bpm and his respiratory rate was 18. There was no erythema within the treatment jimenez. Continue pelvic radiotherapy as prescribed. I will begin Budesonide for his continued diarrhea (probable Crohn???s disease as per elevated calprotectin. Signed by: Dr. Ortega Dennis 03/31/2020 2:50:04 PM
== END 2020-04-05 23:59 | disposition home or self-care (01) ==
LOC: ONCMED 05:49
PROVIDERS: Absent Provider Radiology Radiation Oncology; PCP Internal Medicine; Visit Provider Radiology Radiation Oncology
DX: Z51.0 Encounter for antineoplastic radiation therapy (principal); C61 Malignant neoplasm of prostate; R35.1 Nocturia; R19.7 Diarrhea, unspecified; Z79.818 Long term (current) use of other agents affecting estrogen receptors and estrogen levels
CPT/HCPCS: 77300; 77336; 77338; 77385

== ENCOUNTER 2020-04-17 05:39 | Outpatient (RCR) | payer MEDICARE, SELFPAY ==
--- NOTE | 2020-04-07 15:03 | ONCRAD TMN_ITS ---
Radiation Oncology Weekly Treatment Management Patient: Blas Rodriguez MR#: [id number] : 1950> Attending Physician: Dr. Beau Mims Date of Service: 04/07/2020 Referring Physician(s) : Dr. Daniel Singletary Diagnosis: C61 - Malignant neoplasm of prostate, Diagnosed 10/04/2019 (Active) Stage IIIC, T2c, N0, M0, P>=20, G5 Radiotherapy to date: Course: Prostate 2020, Treatment Site: Pelvis 46Gy, Ref. ID: [id number], Energy: 15X, Dose/Fx (cGy): 200, #Fx: , Dose Correction (cGy): 0, Total Dose (cGy): 4,600, Start Date: 02/17/2020, End Date: 03/26/2020, Elapsed Days: 38 Treatment Site: Boost 78Gy, Ref. ID: [id number], Energy: 15X, Dose/Fx (cGy): 200, #Fx: , Dose Correction (cGy): 0, Total Dose (cGy): 1,600, Start Date: 03/27/2020, Elapsed Days: 11 Reason for visit: The patient is being seen today as part of their regularly scheduled weekly on treatment visits to assess for acute toxicities from radiotherapy. Review of Systems: Stable 4 x nocturia. Able to keep bladder full for treatment. Occ burning dysuria. On Flomax. Loose stools but no diarrhea. Hot flashes persist. Still smoking but down from 1 ppd to ??? ppd. Not interested in chemo after completing RT. Fatigue getting worse and hard to do much at home. Vital Signs: Performed on 04/07/2020 2:25 PM BMI - 21.59 kg/m2, Height - 71.00 in, Weight - 154.8 lbs, Temperature - 99.7 f, Pulse - 100, Respiration - 18, O2 Sat - 98 %, Pain - 0 and BP - 146/ 82 mm(hg)(high/). Physical Exam: Imaging: Radiation therapy imaging related to accurate target localization (i.e. KV, MV and CBCT) was reviewed. Appropriate changes, if any, were made to ensure treatment accuracy. Plan: Good tolerance of RT. Continue as planned. Signed by: Dr. Beau Mims 04/07/2020 3:02:29 PM
--- NOTE | 2020-04-15 14:31 | ONCRAD TMN_ITS ---
Radiation Oncology Treatment Management Note Patient Name: Ander Odonnell Date of : 1950 Date of Service: 04/15/2020 Attending Physician: Ortega Dennis M.D. 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 His pretreatment PSA was 50.2 ng/mL. A TRUS biopsy identified a Jose???s Score of 5+4=9. Neoadjuvant GnRH agonist pharmacotherapy (Zoladex 10.8mg) was initiated on November 132019. The patient has received 74 Gy of a prescribed 78 Gy to the prostate gland with an intensity modulated radiotherapy plan utilizing a step and shoot treatment technique. Upon review of systems, nocturia has stabilized. On physical examination, the patient weighed 154 lbs. His temperature was 99.5 ???F with a blood pressure of 151/89 mmHg. The pulse was 95 bpm and his respiratory rate was 20. There was no erythema within the treatment jimenez. Continue pelvic radiotherapy as planned. Patient has refused GI evaluation for presumed Crohn???s Disease (calprotectin positive) and docetaxel as per NCCN Guidelines for very-high risk prostate cancer. Signed by: Dr. Ortega Dennis 04/15/2020 2:30:39 PM
== END 2020-05-06 23:59 | disposition home or self-care (01) ==
LOC: ONCMED 05:39
PROVIDERS: Absent Provider Radiology Radiation Oncology; PCP Internal Medicine; Visit Provider Radiology Radiation Oncology
DX: Z51.0 Encounter for antineoplastic radiation therapy (principal); C61 Malignant neoplasm of prostate; R97.20 Elevated prostate specific antigen [PSA]
CPT/HCPCS: 77336; 77385

== ENCOUNTER 2020-05-28 06:17 | Outpatient (RCR) | payer MEDICARE, SELFPAY ==
[2020-05-28 13:32] LABS: Prostate Specific Antigen 0.024 ng/mL (0-4)
--- NOTE | 2020-05-28 14:24 | ONC FU_ITS ---
Dr. Torres follow up note Patient: Ander Odonnell Unit #: [id number]: 1950 Dicatated By: Consuelo Torres M.D.Date of Visit:May 28, 2020 Onc Med Follow-up/Prog Note History of Present Illness: Mr. 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 Patient underwent CT scan of abdomen pelvis on October 18, 2019 which shows no evidence of pelvic lymphadenopathy and prostate gland size 3.2 x 3.5 x 5.2 cm and noncalcified nodule right lower lobe lung, about 6 cm and a follow-up CT scan in 6 months was recommended. Bone scan done on October 31, 2019 shows no evidence of metastatic disease. Patient was started on bicalutamide 50 mg p.o. daily by urology on October 18, 2019 AndAnd discontinued on December 16, 2019 Zoladex every 3 month was started on November 14, 2019, Completed concurrent radiation therapy on April 17, 2020 patient received total dose of 78Gy Patient used to drink 10-12 beers a day but quit about 6 months ago. And still smoke about a pack a day Came for follow-up, denies any specific complaint except hot flashes and mild gynecomastia and excessive urination at night but no fever chills, no nausea or vomiting, no diarrhea constipation, no fluid retention, no mood swings, tolerating 3 monthly Zoladex well otherwise and patient has also completed his concurrent radiation therapy to prostate, in mid April 2020 Medications: Amitriptyline HCl 1 Tablet (of 100 mg) Oral daily, Bilberry 1 Capsule Oral daily, blackseed oil 1 Capsule Oral daily, Ginkgo Biloba 1 Tablet Oral daily, HYDROcodone-Acetaminophen 1 Tablet (of 10-325 mg) Oral q 6 hours PRN, Melatonin 2 (2.5 mg) Tablet, chewable Oral at bedtime, Spirulina 3 (500 mg) Tablet Oral daily, Thiamine HCl 1 Capsule (of 50 mg) Capsule Oral daily, Timolol Maleate 1 Drop(s) (of 0.25 %) Solution Ophthalmic daily, Travatan Z 1 Drop(s) (of 0.004 %) Solution Ophthalmic daily, Valium 1 (5 mg) Tablet Oral PRN Allergies: amLODIPine Besylate and Gabapentin. Review of Systems: Review of Systems is not available for this patient. Vital Signs: Performed on May 28, 2020 13:39 Height - 71.00 in Weight - 157.4 lbs (HIGH) BSA - 1.90 sq.m BMI - 21.95 Temperature - 97.7 F (LOW) Pulse - 102 /min (HIGH) Respiration - 16 /min BP - 146/85 mm(hg) (HIGH) O2 Sat - 98 % Pain - 0 Performance Status: 1 - No physically strenuous activity, but ambulatory and able to carry out light or sedentary work (e.g. office work, light house work). (ECOG) Physical Examination: ENMT - No mouth sores, no thrush, no jaundice, Respiratory - Lungs are clear to auscultation, Cardiovascular - Regular rate and rhythm of heart, Abdomen - Soft, bowel sounds present, Extremities - No visible edema. Lab/Imaging: Test performed on Feb 11, 2020 13:47 PSA 0.220 ng/mL Test performed on Feb 11, 2020 09:38 Sodium 132 mmol/L Potassium 3.7 mmol/L Chloride 95 mmol/L CO2 30 mmol/L Anion Gap 10.7 BUN 11 mg/dL Creatinine 0.8 mg/dL Cr Clearance (Est) 92.55 mL/min eGFR 96.4 mL/min Glucose 147 mg/dL Osmolality - Calculated 276 mOsm/kg Calcium 9.4 mg/dL Protein, Total 7.5 g/dL Albumin 4.3 g/dL Globulin 3.2 g/dL Bilirubin, Total 0.2 mg/dL ALT (SGPT) 9 U/L AST (SGOT) 13 U/L Alkaline Phosphatase 82 IU/L WBC 8.7 10 3/uL RBC 3.91 10 6/uL HGB 13.0 g/dL HCT 38.0 % MCV 97.2 fL MCH 33.2 pg MCHC 34.2 g/dL RDW 12.1 % Platelet Count 229 10 3/cmm MPV 10.4 fL Neutrophils 3.54 10 3/uL Lymphocytes 3.7 10 3/uL Monocytes 0.9 10 3/uL Eosinophils 0.6 10 3/uL Basophils 0.0 10 3/uL Neutrophil % 40.6 % Lymphocyte % 42.5 % Monocyte % 9.7 % Eosinophil % 6.5 % Basophils % 0.5 % NRBC % 0 % Test performed on Dec 16, 2019 11:36 Testosterone, Total 2.5 ng/dL TSH 3.34 uIU/mL Impression: Prostatic adenocarcinoma per TRUS P/biopsy done on October 04, 2019 which showed high-volume, high risk aggressive prostate cancer with highest Jose score 5+4 and 90-100% of 3 cores, and also shows [place] score 4+3 in 5 cores, 100% involvement and 4+4 in 2 cores with 100% involvement, with perineural invasion and 1 core( right mid) with a small focus atypical acinar proliferation CT scan of abdomen done on October 18, 2019 shows no evidence of pelvic lymphadenopathy, large prostate gland 3.2 x 3.5 x 5.2 cm. Noncalcified nodule right lower lobe measuring 6 mm follow-up scan in 6 months was recommended. Bone scan done on October 31, 2019 showed no evidence of bone mets. PSA was 50 at the time of diagnosis Started on Casodex on October 18, 2019 and Zoladex on November 14, 2019, Casodex was discontinued on December 16, 2019 because of progressive generalized weakness and fatigue, 3 monthly Zoladex was started on November 14, 2019 and patient received concurrent radiation therapy from February 17, 2020 through April 17, 2020, total dose 78 GY Plan: Discussed with patient regarding his labs his PSA is 0.024 compared to 0.220 on February 11, 2020 Clinically, patient doing well with no new signs symptom suggestive of recurrence of disease, tolerating 3 monthly Zoladex well, his follow-up PSA continue to show improvement and will proceed with next 3 monthly dose of Zoladex today and then return to clinic in 3 months with PSA As far as mild to moderate hot flashes is concerned, patient was advised to try regular exercise off and on high intensity as tolerated and watch diet and also reduce her excessive water in the evening to improve excessive urination at night. And if there is no improvement in his heart flashes, may consider intervention Signed By: Consuelo Torres M.D. <<Signature on File>>
[2020-05-28] MEDS: lidocaine 1% INJ 20 mL INJECTION (14:28)
[2020-05-28] MEDS: goserelin acetate 10.8 mg Implant IM (14:40)
== END 2020-06-05 23:59 | disposition home or self-care (01) ==
LOC: ONCMED 06:17
PROVIDERS: Absent Provider Radiology Radiation Oncology; PCP Internal Medicine; Visit Provider Internal Medicine Hematology & Oncology
DX: C61 Malignant neoplasm of prostate (principal); R97.20 Elevated prostate specific antigen [PSA]; R59.0 Localized enlarged lymph nodes; Z79.818 Long term (current) use of other agents affecting estrogen receptors and estrogen levels
CPT/HCPCS: 36415; 84153; 96372; 96402; 99215; J9202

== ENCOUNTER 2020-08-31 13:46 | Outpatient (CLI) | payer MEDICARE, SELFPAY ==
[2020-08-31 15:17] LABS: Prostate Specific Antigen 0.009 ng/mL (0-4)
--- NOTE | 2020-08-31 15:46 | ONC FU_ITS ---
Dr. Torres follow up note Patient: Ander Odonnell Unit #: [id number]: 1950 Dicatated By: Consuelo Torres M.D.Date of Visit:Aug 31, 2020 Onc Med Follow-up/Prog Note History of Present Illness: Mr. 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 Patient underwent CT scan of abdomen pelvis on October 18, 2019 which shows no evidence of pelvic lymphadenopathy and prostate gland size 3.2 x 3.5 x 5.2 cm and noncalcified nodule right lower lobe lung, about 6 cm and a follow-up CT scan in 6 months was recommended. Bone scan done on October 31, 2019 shows no evidence of metastatic disease. Patient was started on bicalutamide 50 mg p.o. daily by urology on October 18, 2019 AndAnd discontinued on December 16, 2019 Zoladex every 3 month was started on November 14, 2019, Completed concurrent radiation therapy on April 17, 2020 patient received total dose of 78Gy Patient used to drink 10-12 beers a day but quit about 6 months ago. And still smoke about a pack a day Came for follow-up, denies any specific complaints, except persistent mild to moderate hot flashes and mild breast fullness and weight gain, no fever chills, no nausea or vomiting, no diarrhea or constipation, no new bony pains, tolerating 3 monthly Zoladex well otherwise Medications: Amitriptyline HCl 1 Tablet (of 100 mg) Oral daily, Bilberry 1 Capsule Oral daily, blackseed oil 1 Capsule Oral daily, Ginkgo Biloba 1 Tablet Oral daily, HYDROcodone-Acetaminophen 1 Tablet (of 10-325 mg) Oral q 6 hours PRN, Melatonin 2 (2.5 mg) Tablet, chewable Oral at bedtime, Spirulina 3 (500 mg) Tablet Oral daily, Thiamine HCl 1 Capsule (of 50 mg) Capsule Oral daily, Timolol Maleate 1 Drop(s) (of 0.25 %) Solution Ophthalmic daily, Travatan Z 1 Drop(s) (of 0.004 %) Solution Ophthalmic daily, Valium 1 (5 mg) Tablet Oral PRN Allergies: amLODIPine Besylate and Gabapentin. Review of Systems: Review of Systems is not available for this patient. Vital Signs: Performed on Aug 31, 2020 15:43 Height - 71.00 in Weight - 154.8 lbs (LOW) BSA - 1.89 sq.m BMI - 21.59 Temperature - 98.5 F Pulse - 97 /min Respiration - 18 /min BP - 146/81 mm(hg) (HIGH) O2 Sat - 98 % Pain - 0 Fatigue - 0 Performance Status: 0 - Fully active, able to carry on all predisease activities without restrictions. (ECOG) Physical Examination: ENMT - Denies any mouth sores or jaundice, Respiratory - Lungs are clear to auscultation, Cardiovascular - Regular rate and rhythm of heart, Abdomen - Soft, bowel sounds present, Extremities - No visible edema. Lab/Imaging: Most recent lab results are not available for this patient. Impression: Prostatic adenocarcinoma per TRUS P/biopsy done on October 04, 2019 which showed high-volume, high risk aggressive prostate cancer with highest Milton score 5+4 and 90-100% of 3 cores, and also shows Jose score 4+3 in 5 cores, 100% involvement and 4+4 in 2 cores with 100% involvement, with perineural invasion and 1 core( right mid) with a small focus atypical acinar proliferation CT scan of abdomen done on October 18, 2019 shows no evidence of pelvic lymphadenopathy, large prostate gland 3.2 x 3.5 x 5.2 cm. Noncalcified nodule right lower lobe measuring 6 mm follow-up scan in 6 months was recommended. Bone scan done on October 31, 2019 showed no evidence of bone mets. PSA was 50 at the time of diagnosis Started on Casodex on October 18, 2019 and Zoladex on November 14, 2019, Casodex was discontinued on December 16, 2019 because of progressive generalized weakness and fatigue, 3 monthly Zoladex was started on November 14, 2019 and patient received concurrent radiation therapy from February 17, 2020 through April 17, 2020, total dose 78 GY Plan: Discussed with patient regarding his labs PSA is 0.009 compared to 0.024 on May 28, 2020 Clinically, patient doing well with no signs symptom suggestive of disease progression, tolerating Zoladex well but with expected side effects e.g. hot flashes, generalized weakness and fatigue, mild breast fullness, patient was advised to maintain regular moderate exercise and he was also advised to take vitamin D/calcium to prevent osteoporosis/osteopenia. We will proceed with next 3 monthly dose of Zoladex today then he will return to clinic in 3 months with PSA and for 3 monthly Zoladex. Signed By: Consuelo Torres M.D. <<Signature on File>>
[2020-08-31] MEDS: lidocaine 1% INJ 20 mL INJECTION (15:47)
[2020-08-31] MEDS: goserelin acetate 10.8 mg Implant SUBCUT (15:58)
== END 2020-08-31 13:47 | disposition home or self-care (01) ==
PROVIDERS: PCP Internal Medicine; Visit Provider Internal Medicine Hematology & Oncology
DX: Z51.11 Encounter for antineoplastic chemotherapy (principal); C61 Malignant neoplasm of prostate; R97.20 Elevated prostate specific antigen [PSA]; R53.1 Weakness; R53.82 Chronic fatigue, unspecified; Z79.899 Other long term (current) drug therapy
CPT/HCPCS: 84153; 96372; 96402; 99215; J9202

== ENCOUNTER 2020-12-15 13:25 | Outpatient (CLI) | payer MEDICARE, SELFPAY ==
[2020-12-15 14:58] LABS: Prostate Specific Antigen 0.006 ng/mL (0-4)
[2020-12-15] MEDS: lidocaine 1% INJ 20 mL INJECTION (15:45)
[2020-12-15] MEDS: goserelin acetate 10.8 mg Implant SUBCUT (15:57)
--- NOTE | 2020-12-15 15:58 | ONC FU_ITS ---
Dr. Torres follow up note Patient: Ander Odonnell Unit #: [id number]: 1950 Dicatated By: Consuelo Torres M.D.Date of Visit:Dec 15, 2020 Onc Med Follow-up/Prog Note History of Present Illness: Mr. 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 Patient underwent CT scan of abdomen pelvis on October 18, 2019 which shows no evidence of pelvic lymphadenopathy and prostate gland size 3.2 x 3.5 x 5.2 cm and noncalcified nodule right lower lobe lung, about 6 cm and a follow-up CT scan in 6 months was recommended. Bone scan done on October 31, 2019 shows no evidence of metastatic disease. Patient was started on bicalutamide 50 mg p.o. daily by urology on October 18, 2019 AndAnd discontinued on December 16, 2019 Zoladex every 3 month was started on November 14, 2019, Completed concurrent radiation therapy on April 17, 2020 patient received total dose of 78Gy Patient used to drink 10-12 beers a day but quit about 6 months ago. And still smoke about a pack a day Came for follow-up, denies any specific complaints except off-and-on hot flashes otherwise no dysuria no hematuria no new bony pains, no weight loss, appetite is good, tolerating Zoladex well otherwise Medications: Amitriptyline HCl 1 Tablet (of 100 mg) Oral daily, Bilberry 1 Capsule Oral daily, blackseed oil 1 Capsule Oral daily, Ginkgo Biloba 1 Tablet Oral daily, HYDROcodone-Acetaminophen 1 Tablet (of 10-325 mg) Oral q 6 hours PRN, Melatonin 2 (2.5 mg) Tablet, chewable Oral at bedtime, Spirulina 3 (500 mg) Tablet Oral daily, Thiamine HCl 1 Capsule (of 50 mg) Capsule Oral daily, Timolol Maleate 1 Drop(s) (of 0.25 %) Solution Ophthalmic daily, Travatan Z 1 Drop(s) (of 0.004 %) Solution Ophthalmic daily, Valium 1 (5 mg) Tablet Oral PRN Allergies: amLODIPine Besylate and Gabapentin. Review of Systems: Review of Systems is not available for this patient. Vital Signs: Performed on Dec 15, 2020 15:28 Height - 71.00 in Weight - 158.2 lbs (HIGH) BSA - 1.91 sq.m BMI - 22.06 Temperature - 97.5 F (LOW) Pulse - 106 /min (HIGH) Respiration - 18 /min BP - 152/91 mm(hg) (HIGH) O2 Sat - 98 % Pain - 0 Fatigue - 6 Performance Status: 0 - Fully active, able to carry on all predisease activities without restrictions. (ECOG) Physical Examination: ENMT - No mouth sores, no thrush, no jaundice, Respiratory - Lungs are clear to auscultation, Cardiovascular - Regular rate and rhythm of heart, Abdomen - Soft, bowel sounds present, Extremities - No visible edema. Lab/Imaging: Most recent lab results are not available for this patient. Impression: Prostatic adenocarcinoma per TRUS P/biopsy done on October 04, 2019 which showed high-volume, high risk aggressive prostate cancer with highest Jose score 5+4 and 90-100% of 3 cores, and also shows Dumfries score 4+3 in 5 cores, 100% involvement and 4+4 in 2 cores with 100% involvement, with perineural invasion and 1 core( right mid) with a small focus atypical acinar proliferation CT scan of abdomen done on October 18, 2019 shows no evidence of pelvic lymphadenopathy, large prostate gland 3.2 x 3.5 x 5.2 cm. Noncalcified nodule right lower lobe measuring 6 mm follow-up scan in 6 months was recommended. Bone scan done on October 31, 2019 showed no evidence of bone mets. PSA was 50 at the time of diagnosis Started on Casodex on October 18, 2019 and Zoladex on November 14, 2019, Casodex was discontinued on December 16, 2019 because of progressive generalized weakness and fatigue, 3 monthly Zoladex was started on November 14, 2019 and patient received concurrent radiation therapy from February 17, 2020 through April 17, 2020, total dose 78 GY Plan: Discussed with patient regarding his labs his PSA is 0.006 Clinically, patient has no signs symptoms history of recurrence of disease, tolerating Zoladex well but with expected side effect e.g. off and on hot flashes, will proceed with next 3 monthly dose of Zoladex today and then return to clinic in 3 months with PSA, Patient was advised to Maintained active lifestyle with regular exercise, which may help his symptoms Signed By: Consuelo Torres M.D. <<Signature on File>>
== END 2020-12-15 13:26 | disposition home or self-care (01) ==
LOC: ONCMED 13:28
PROVIDERS: PCP Internal Medicine; Visit Provider Internal Medicine Hematology & Oncology
DX: C61 Malignant neoplasm of prostate (principal); R59.0 Localized enlarged lymph nodes; Z79.818 Long term (current) use of other agents affecting estrogen receptors and estrogen levels
CPT/HCPCS: 36415; 84153; 96372; 96402; 99215; J9202

== ENCOUNTER 2021-03-25 13:32 | Outpatient (CLI) | payer MEDICARE, SELFPAY ==
[2021-03-25 14:25] LABS: Prostate Specific Antigen < 0.014 ng/mL (0-4)
[2021-03-25] MEDS: lidocaine 1% INJ 20 mL INJECTION (15:06)
[2021-03-25] MEDS: goserelin acetate 10.8 mg Implant SUBCUT (15:17)
--- NOTE | 2021-03-25 15:17 | ONC FU_ITS ---
Deana Arreola Progress Note Patient: Ander Odonnell Unit #: [id number]: 1950 Dicatated By: Deana Arreola N.P.Date of Visit:Mar 25, 2021 Onc MED Follow-up/Prog Note Chief Complaint: Prostate cancer History of Present Illness: Mr. 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 Patient underwent CT scan of abdomen pelvis on October 18, 2019 which shows no evidence of pelvic lymphadenopathy and prostate gland size 3.2 x 3.5 x 5.2 cm and noncalcified nodule right lower lobe lung, about 6 cm and a follow-up CT scan in 6 months was recommended. Bone scan done on October 31, 2019 shows no evidence of metastatic disease. Patient was started on bicalutamide 50 mg p.o. daily by urology on October 18, 2019 AndAnd discontinued on December 16, 2019 Zoladex every 3 month was started on November 14, 2019, Completed concurrent radiation therapy on April 17, 2020 patient received total dose of 78Gy Patient used to drink 10-12 beers a day but quit about 6 months ago. And still smoke about a pack a day Patient presents today for follow-up. He states he has been feeling well other than having fatigue. He is still able to complete activities ECOG 1. He denies fever, chills, night sweats. No shortness of breath, cough, chest pain. No GI or problems. No joint or muscle pain. Review Of Symptoms: See above. Past Medical History: Glaucoma Past Surgical History: TRUSP/bx in 2019 Allergies: amLODIPine Besylate and Gabapentin. Medications: Amitriptyline HCl 1 Tablet (of 100 mg) Oral daily Bilberry 1 Capsule Oral daily blackseed oil 1 Capsule Oral daily Ginkgo Biloba 1 Tablet Oral daily HYDROcodone-Acetaminophen 1 Tablet (of 10-325 mg) Oral q 6 hours PRN Melatonin 2 (2.5 mg) Tablet, chewable Oral at bedtime Spirulina 3 (500 mg) Tablet Oral daily Thiamine HCl 1 Capsule (of 50 mg) Capsule Oral daily Timolol Maleate 1 Drop(s) (of 0.25 %) Solution Ophthalmic daily Travatan Z 1 Drop(s) (of 0.004 %) Solution Ophthalmic daily Valium 1 (5 mg) Tablet Oral PRN Family History: Mr. Odonnell's mother is : colon cancer. Mr. Odonnell's father at age 27: drowning. Social History: Mr. Odonnell is . He is a daily smoker who has smoked 1.0 pack/day for 53 years. He is a former drinker who had consumed 10 drinks/day 7 days/week. He has indicated exposure to the following products: cigarettes. Physical Examination: Performed on Mar 25, 2021 14:54: Height - 71.00 in, Weight - 162.6 lbs (HIGH), BSA - 1.93 sq.m, BMI - 22.68, Temperature - 96.5 F (LOW), Pulse - 95 /min, Respiration - 18 /min, BP - 189/98 mm(hg) (HIGH), O2 Sat - 97 %, Pain - 0, and Fatigue - 7. Performance Status: 1 - No physically strenuous activity, but ambulatory and able to carry out light or sedentary work (e.g. office work, light house work). (ECOG) Constitutional Alert, cooperative, oriented. Mood and affect appropriate. Appears close to chronological age. Well nourished. Well developed. Head Normocephalic; no scars. Eyes Conjunctivae and sclerae are clear and without icterus. Pupils are reactive and equal. Respiratory Lungs are clear to auscultation without rhonchi or wheezing. Cardiovascular Regular rate and rhythm of heart without murmurs, gallops or rubs. Abdomen Non-tender, non-distended, no masses, ascites or hepatosplenomegaly. Good bowel sounds. No guarding or rebound tenderness. Extremities No visible deformities, no cyanosis, clubbing or edema. Pulses 3+ and equal bilaterally. Musculoskeletal No tenderness or swelling, normal range of motion without obvious weakness. Psychiatric Alert and oriented times three. Coherent speech. Verbalizes understanding of our discussions today. Laboratory: Test performed on Mar 25, 2021 13:40 PSA < 0.014 ng/mL Impression: Prostatic adenocarcinoma per TRUS P/biopsy done on October 04, 2019 which showed high-volume, high risk aggressive prostate cancer with highest Exeter score 5+4 and 90-100% of 3 cores, and also shows Exeter score 4+3 in 5 cores, 100% involvement and 4+4 in 2 cores with 100% involvement, with perineural invasion and 1 core( right mid) with a small focus atypical acinar proliferation CT scan of abdomen done on October 18, 2019 shows no evidence of pelvic lymphadenopathy, large prostate gland 3.2 x 3.5 x 5.2 cm. Noncalcified nodule right lower lobe measuring 6 mm follow-up scan in 6 months was recommended. Bone scan done on October 31, 2019 showed no evidence of bone mets. PSA was 50 at the time of diagnosis Started on Casodex on October 18, 2019 and Zoladex on November 14, 2019, Casodex was discontinued on December 16, 2019 because of progressive generalized weakness and fatigue, 3 monthly Zoladex was started on November 14, 2019 and patient received concurrent radiation therapy from February 17, 2020 through April 17, 2020, total dose 78 GY Plan: Discussed with patient regarding his labs his PSA is <0.014 Clinically, patient has no signs symptoms history of recurrence of disease, tolerating Zoladex well but having fatigue. We will continue with Zoladex today and every 3 months. Return to clinic in 3 months with PSA. Signed By: Deana Arreola N.P. <<Signature on File>>
== END 2021-03-25 13:33 | disposition home or self-care (01) ==
PROVIDERS: PCP Internal Medicine; Visit Provider Nurse Practitioner Family
DX: C61 Malignant neoplasm of prostate (principal); Z79.890 Hormone replacement therapy; Z92.3 Personal history of irradiation; Z79.899 Other long term (current) drug therapy
CPT/HCPCS: 36415; 84153; 96372; 96402; 99215; J9202

== ENCOUNTER 2021-07-15 14:25 | Oncology outpatient (recurring) (ONCR) | payer MEDICARE, SELFPAY ==
[2021-07-15 15:39] LABS: Prostate Specific Antigen < 0.014 ng/mL (0-4)
[2021-07-15] MEDS: lidocaine 1% INJ 20 mL SUBCUT (16:16)
[2021-07-15] MEDS: goserelin acetate 10.8 mg Implant SUBCUT (16:30)
[2021-07-15 16:39] VITALS: BP 149/83; PULSE 97; RESP 16; TEMP 36.9; O2SAT 97
== END 2021-08-05 23:59 | disposition home or self-care (01) ==
PROVIDERS: PCP Internal Medicine; Visit Provider Internal Medicine Hematology & Oncology
DX: C61 Malignant neoplasm of prostate (principal); R91.1 Solitary pulmonary nodule; F17.210 Nicotine dependence, cigarettes, uncomplicated; R53.1 Weakness; R53.83 Other fatigue; Z92.3 Personal history of irradiation; Z79.818 Long term (current) use of other agents affecting estrogen receptors and estrogen levels
CPT/HCPCS: 84153; 96372; 96402; 99214; J9202

== ENCOUNTER 2021-10-19 14:28 | Oncology outpatient (recurring) (ONCR) | payer MEDICARE, SELFPAY ==
[2021-10-19 14:58] LABS: Basophils % 0.5 %; Eosinophils # 0.5 10^3/uL (0.0-0.8); Eosinophils % 7.9 %; Hematocrit 37.6 % (42.0-52.0); Hemoglobin 12.9 g/dL (11.7-16.6); Lymphocytes # 1.5 10^3/uL (0.8-4.8); Lymphocytes % 23.4 %; Mean Corpuscular HGB Conc 34.3 g/dL (30.0-36.0); Mean Corpuscular Hemoglobin 33.4 pg (28.0-34.0); Mean Corpuscular Volume 97.4 fl (80-94); Mean Platelet Volume 9.3 fL (7.4-10.4); Monocytes # 0.7 10^3/uL (0.2-0.9); Monocytes % 11.6 %; Neutrophils # 3.54 10^3/uL (1.8-7.7); Neutrophils % 56.3 %; Nucleated Red Blood Cells % 0 %; Platelet Count 214 10^3/cmm (130-400); Red Blood Count 3.86 10^6/uL (4.1-5.3); Red Cell Distribution Width 12.1 % (12.1-15.1); White Blood Count 6.3 10^3/uL (4.0-10.0)
[2021-10-19 15:36] LABS: Alanine Aminotransferase 13 U/L (0-41); Albumin Level 4.1 g/dL (3.5-5.2); Alkaline Phosphatase 71 U/L (40-130); Anion Gap 16.1 (5-19); Aspartate Amino Transferase 16 U/L (0-40); Blood Urea Nitrogen 13 mg/dL (8-23); Calcium 9.2 mg/dL (8.5-10.5); Carbon Dioxide 23 mmol/L (22-29); Chloride 104 mmol/L (98-107); Globulin 2.9 g/dL (1.3-4.6); Glomerular Filtration Rate 95.8 mL/min (90-130); Glucose 113 mg/dL (65-115); Osmolality Calculated 289 mOsm/kg (285-295); Potassium 4.1 mmol/L (3.5-5.1); Sodium 139 mmol/L (136-145); Testosterone Total 2.5 ng/dL (193-740); Total Bilirubin 0.2 mg/dL (0.15-1.2)
[2021-10-19 15:56] LABS: Prostate Specific Antigen < 0.014 ng/mL (0-4)
[2021-10-19] MEDS: lidocaine 1% INJ 20 mL MDV (mL) SUBCUT (16:01)
[2021-10-19] MEDS: goserelin acetate 10.8 mg Implant SUBCUT (16:02)
== END 2021-11-05 23:59 | disposition home or self-care (01) ==
PROVIDERS: Nurse Practitioner; PCP Internal Medicine; Visit Provider Internal Medicine Hematology & Oncology
DX: C61 Malignant neoplasm of prostate (principal); F41.9 Anxiety disorder, unspecified; F17.210 Nicotine dependence, cigarettes, uncomplicated; Z79.818 Long term (current) use of other agents affecting estrogen receptors and estrogen levels; Z79.899 Other long term (current) drug therapy
CPT/HCPCS: 36415; 80053; 84153; 84403; 85025; 96372; 96402; 99214; J9202

== ENCOUNTER 2022-03-22 14:10 | Oncology outpatient (recurring) (ONCR) | payer MEDICARE, SELFPAY ==
[2022-03-22 15:40] LABS: Prostate Specific Antigen < 0.014 ng/mL (0-4)
[2022-03-22] MEDS: leuprolide 22.5 mg Kit IM (16:00)
== END 2022-04-05 23:59 | disposition home or self-care (01) ==
PROVIDERS: PCP Internal Medicine; Visit Provider Internal Medicine Hematology & Oncology
DX: C61 Malignant neoplasm of prostate (principal); Z79.818 Long term (current) use of other agents affecting estrogen receptors and estrogen levels; F17.210 Nicotine dependence, cigarettes, uncomplicated
CPT/HCPCS: 36415; 84153; 96402; 99214; J9217

== ENCOUNTER 2022-06-21 13:11 | Oncology outpatient (recurring) (ONCR) | payer MEDICARE, SELFPAY ==
[2022-06-21] MEDS: leuprolide 22.5 mg Kit IM (15:18)
== END 2022-07-06 23:59 | disposition home or self-care (01) ==
LOC: ONCMED 13:12
PROVIDERS: PCP Internal Medicine; Visit Provider Internal Medicine Hematology & Oncology
DX: C61 Malignant neoplasm of prostate (principal); R35.0 Frequency of micturition; R39.198 Other difficulties with micturition; R19.5 Other fecal abnormalities; M25.562 Pain in left knee; Z90.89 Acquired absence of other organs; F17.210 Nicotine dependence, cigarettes, uncomplicated; Z79.818 Long term (current) use of other agents affecting estrogen receptors and estrogen levels; Z79.899 Other long term (current) drug therapy; Z80.0 Family history of malignant neoplasm of digestive organs
CPT/HCPCS: 36415; 80053; 84153; 96402; 99214; J9217

== ENCOUNTER 2022-09-28 13:44 | Oncology outpatient (recurring) (ONCR) | payer MEDICARE, SELFPAY ==
[2022-09-28 14:15] LABS: Basophils % 0.4 %; Eosinophils # 0.4 10^3/uL (0.0-0.8); Eosinophils % 8.3 %; Hematocrit 36.1 % (37-53); Lymphocytes # 1.3 10^3/uL (0.8-4.8); Mean Corpuscular Hemoglobin 31.9 pg (27-33); Mean Corpuscular Volume 96.8 fl (82-101); Mean Platelet Volume 8.9 fL (7.4-10.4); Monocytes # 0.6 10^3/uL (0.2-0.9); Monocytes % 12.1 %; Neutrophils # 2.44 10^3/uL (1.8-7.7); Nucleated Red Blood Cells % 0 %; Platelet Count 223 10^3/cmm (157-399); Red Blood Count 3.73 10^6/uL (3.85-5.65); Red Cell Distribution Width 12.7 % (12.1-15.1)
[2022-09-28 15:34] LABS: Alanine Aminotransferase 12 U/L (0-41); Alkaline Phosphatase 76 U/L (40-130); Anion Gap 13.2 (5-19); Aspartate Amino Transferase 12 U/L (0-40); Blood Urea Nitrogen 11 mg/dL (8-23); Calcium 8.9 mg/dL (8.5-10.5); Carbon Dioxide 27 mmol/L (22-29); Chloride 104 mmol/L (98-107); Glomerular Filtration Rate 83.4 mL/min (90-130); Glucose 104 mg/dL (65-115); Osmolality Calculated 290 mOsm/kg (285-295); Potassium 4.2 mmol/L (3.5-5.1); Sodium 140 mmol/L (136-145); Total Bilirubin 0.2 mg/dL (0.15-1.2)
[2022-09-28 15:40] LABS: Testosterone Total 2.5 ng/dL (193-740)
[2022-09-28 15:42] LABS: Prostate Specific Antigen < 0.014 ng/mL (0-4)
[2022-09-28] MEDS: leuprolide 22.5 mg Kit IM (16:14)
== END 2022-10-06 23:59 | disposition home or self-care (01) ==
PROVIDERS: Internal Medicine Medical Oncology; PCP Internal Medicine; Visit Provider Internal Medicine Hematology & Oncology
DX: C61 Malignant neoplasm of prostate (principal); Z79.818 Long term (current) use of other agents affecting estrogen receptors and estrogen levels; F17.210 Nicotine dependence, cigarettes, uncomplicated; Z79.899 Other long term (current) drug therapy
CPT/HCPCS: 36415; 80053; 84153; 84403; 85025; 96402; 99214; J9217

== ENCOUNTER 2023-01-02 12:51 | Oncology outpatient (recurring) (ONCR) | payer MEDICARE, SELFPAY ==
[2023-01-02 13:01] VITALS: BP 126/83; PULSE 91; RESP 16; TEMP 36.2; O2SAT 96
[2023-01-02 13:49] LABS: Basophils % 0.5 %; Eosinophils # 0.5 10^3/uL (0.0-0.8); Eosinophils % 8.4 %; Hematocrit 35.4 % (37-53); Lymphocytes # 1.5 10^3/uL (0.8-4.8); Lymphocytes % 25.7 %; Mean Corpuscular HGB Conc 33.1 g/dL (30-55); Mean Corpuscular Hemoglobin 31.9 pg (27-33); Mean Corpuscular Volume 96.5 fl (82-101); Mean Platelet Volume 9.6 fL (7.4-10.4); Monocytes # 0.7 10^3/uL (0.2-0.9); Monocytes % 12.7 %; Neutrophils % 52.4 %; Nucleated Red Blood Cells % 0 %; Platelet Count 224 10^3/cmm (157-399); Red Blood Count 3.67 10^6/uL (3.85-5.65); Red Cell Distribution Width 13.1 % (12.1-15.1); White Blood Count 5.73 10^3/uL (3.29-11.43)
[2023-01-02 14:09] LABS: Alanine Aminotransferase 12 U/L (0-41); Albumin Level 3.9 g/dL (3.5-5.2); Alkaline Phosphatase 83 U/L (40-130); Anion Gap 14.1 (5-19); Aspartate Amino Transferase 15 U/L (0-40); Blood Urea Nitrogen 9 mg/dL (8-23); Calcium 9.1 mg/dL (8.5-10.5); Carbon Dioxide 26 mmol/L (22-29); Chloride 100 mmol/L (98-107); Glomerular Filtration Rate 83.4 mL/min (90-130); Glucose 113 mg/dL (65-115); Osmolality Calculated 281 mOsm/kg (285-295); Potassium 4.1 mmol/L (3.5-5.1); Sodium 136 mmol/L (136-145); Total Bilirubin 0.3 mg/dL (0.15-1.2); Total Protein 6.9 g/dL (6.6-8.7)
[2023-01-02 14:10] LABS: Prostate Specific Antigen < 0.014 ng/mL (0-4)
[2023-01-02 14:41] LABS: Testosterone Total 2.5 ng/dL (193-740)
[2023-01-02] MEDS: leuprolide 22.5 mg Kit IM (15:10)
== END 2023-01-05 23:59 | disposition home or self-care (01) ==
PROVIDERS: Internal Medicine Medical Oncology; PCP Internal Medicine; Visit Provider Internal Medicine Hematology & Oncology
DX: C61 Malignant neoplasm of prostate (principal); Z79.818 Long term (current) use of other agents affecting estrogen receptors and estrogen levels; F17.210 Nicotine dependence, cigarettes, uncomplicated; F41.9 Anxiety disorder, unspecified; Z79.899 Other long term (current) drug therapy
CPT/HCPCS: 36415; 80053; 84153; 84403; 85025; 96402; 99214; J9217

== ENCOUNTER 2023-01-24 14:45 | Outpatient (CLI) | payer MEDICARE, SELFPAY ==
--- NOTE | 2023-01-24 15:01 | USCV_ITS ---
Ander Odonnell Age: 72 Gender: M : 1950 Exam Date: 01/24/2023 15:21 Ordering Phys: Dez Garcia DO Technologist: CT Exam Location: [facility] [place]_ Indication: claudication Risk Factors: Previous Vascular Surgery: RIGHT LEFT Waveform Velocity (cm/s) Velocity (cm/s) Waveform Triphasic 189.3 Iliac Prox 107.2 Triphasic Triphasic 171.8 Iliac Mid 174.7 Biphasic Triphasic 148.3 Iliac Distal 127.4 Triphasic Triphasic 124.9 ASSISTANT GM OF CONTENT & DELIVERY 133.9 Triphasic Biphasic 200.8 SFA Prox 145.3 Biphasic Triphasic 178.5 SFA Mid 83.3 Biphasic Biphasic 66.2 SFA Dist 122.4 Biphasic Biphasic 56.6 POP 65.4 Biphasic Biphasic 39.7 HEALTH AND WELLNESS ADVISOR 64.5 Biphasic N/A DPA N/A 0.9 BASILIO 0.8 FINDINGS Mild diffuse plaque in the iliac arteries bilaterally Moderate diffuse plaques in this femoral and the popliteal arteries bilaterally Resting BASILIO of 0.9 on the right side and 0.8 on the left side No Doppler flow signals in the dorsalis pedis arteries bilaterally CONCLUSIONS Abnormal resting ABIs bilaterally suggesting mild peripheral artery disease Moderate diffuse plaque in the femoral and popliteal arteries bilaterally Possibly occluded dorsalis pedis arteries bilaterally. No similar previous studies are available for comparison Consider exercise BASILIO, if clinically indicated, to better evaluate the functional significance Dr Florin Mcneill MD [facility] (Electronically Signed) Final Date: 26 January 2023 07:11 S
== END 2023-01-24 14:46 | disposition home or self-care (01) ==
LOC: RAD 14:46
PROVIDERS: PCP Internal Medicine; Visit Provider Internal Medicine
DX: I70.213 Atherosclerosis of native arteries of extremities with intermittent claudication, bilateral legs (principal)
CPT/HCPCS: 93925

== ENCOUNTER 2023-03-27 12:21 | Oncology outpatient (recurring) (ONCR) | payer MEDICARE, SELFPAY ==
[2023-03-27 13:06] LABS: Basophils % 0.5 %; Eosinophils # 0.5 10^3/uL (0.0-0.8); Eosinophils % 9.4 %; Lymphocytes # 1.6 10^3/uL (0.8-4.8); Lymphocytes % 29.1 %; Mean Corpuscular HGB Conc 33.5 g/dL (30-55); Mean Corpuscular Hemoglobin 32.6 pg (27-33); Mean Corpuscular Volume 97.4 fl (82-101); Monocytes # 0.7 10^3/uL (0.2-0.9); Monocytes % 11.8 %; Neutrophils # 2.74 10^3/uL (1.8-7.7); Neutrophils % 48.8 %; Nucleated Red Blood Cells % 0 %; Platelet Count 250 10^3/cmm (157-399); Red Cell Distribution Width 13.2 % (12.1-15.1); White Blood Count 5.61 10^3/uL (3.29-11.43)
[2023-03-27 13:46] LABS: Alanine Aminotransferase 15 U/L (0-41); Albumin Level 3.8 g/dL (3.5-5.2); Alkaline Phosphatase 74 U/L (40-130); Aspartate Amino Transferase 14 U/L (0-40); Blood Urea Nitrogen 9 mg/dL (8-23); Calcium 8.7 mg/dL (8.5-10.5); Carbon Dioxide 28 mmol/L (22-29); Chloride 101 mmol/L (98-107); Globulin 2.9 g/dL (1.3-4.6); Glomerular Filtration Rate 95.6 mL/min (90-130); Glucose 108 mg/dL (65-115); Osmolality Calculated 285 mOsm/kg (285-295); Sodium 138 mmol/L (136-145); Testosterone Total 2.5 ng/dL (193-740); Total Bilirubin 0.2 mg/dL (0.15-1.2); Total Protein 6.7 g/dL (6.6-8.7)
[2023-03-27 13:47] LABS: Prostate Specific Antigen < 0.014 ng/mL (0-4)
== END 2023-04-06 23:59 | disposition home or self-care (01) ==
PROVIDERS: Nurse Practitioner Family; PCP Internal Medicine; Visit Provider Internal Medicine Hematology & Oncology
DX: C61 Malignant neoplasm of prostate (principal); Z79.818 Long term (current) use of other agents affecting estrogen receptors and estrogen levels; F17.210 Nicotine dependence, cigarettes, uncomplicated; Z79.899 Other long term (current) drug therapy; M54.9 Dorsalgia, unspecified
CPT/HCPCS: 36415; 80053; 84153; 84403; 85025; 99214

== ENCOUNTER → 2023-04-10 14:35 | Outpatient (BNVA) | payer MEDICARE, SELFPAY | PROVIDERS: PCP Internal Medicine; Referring Provider Internal Medicine; Visit Provider Internal Medicine Cardiovascular Disease | DX: I77.9 Disorder of arteries and arterioles, unspecified (principal); R07.89 Other chest pain; I10 Essential (primary) hypertension; F17.210 Nicotine dependence, cigarettes, uncomplicated | CPT/HCPCS: 99204 ==

== ENCOUNTER 2023-04-17 08:38 | Outpatient (CLI) | payer MEDICARE, SELFPAY ==
--- NOTE | 2023-04-17 09:15 | CT_ITS ---
WS: [id number] LDCT LUNG CANCER SCREENING TECHNIQUE: Noncontrast CT of the chest with coronal and sagittal reformatted images. CLINICAL INFORMATION: history of smokeing, back pain COMPARISON: None. DLP: 68.92 mGy.cm DIvol: Mean CTDIvol: 1.50 (mGy) All CT scans at [facility] use at least one of these dose optimization techniques: automat ed exposure control; mA and/or kV adjustment per patient size (includes targeted exams where dose is matched to clinical indication); or iterative reconstruction. FINDINGS: No suspicious pulmonary parenchymal abnormalities. Moderate thoracic kyphosis with diffuse ankylosis. Normal caliber thoracic aorta. Aortic calcificatio n. No mediastinal or hilar lymphadenopathy. Mild coronary calcification. No axillary lymphadenopathy. Partially visualized LEFT 11th rib fracture may correspond to the bone scan findings but incompletel y visualized. LEFT adrenal adenoma measuring 1.6 cm. IMPRESSION: CT/CT lung screening 11025 LUNG-RADS: 2-Benign Appearance or Behavior FOLLOW UP: 12 Month: Continue annual screening with LDCT
--- NOTE | 2023-04-17 09:30 | NM_ITS ---
WS: [id number] NUCLEAR MEDICINE BONE SCAN Radiopharmaceutical: 26.4 Tc-99m MDP mCi IV Injection site: Antecubital Postinjection imaging delay: 1 hr CLINICAL INFORMATION: prostate cancer COMPARISON: 2020 FINDINGS: Bone lesions: Punctate foci of activity in the LEFT L2 and L3 transverse processes LEFT T12 pedicle a nd LEFT T11 rib. Soft tissue contours: Normal. Kidneys: Normal. Other findings: Degenerative arthritis both knees. IMPRESSION: Punctate foci of activity in the LEFT L2 and L3 transverse processes LEFT T12 pedicle and LEFT T11 ri b. This may be posttraumatic but metastatic disease not excluded. Recommend 3-month follow-up and cor relation with history of trauma.
== END 2023-04-17 08:39 | disposition home or self-care (01) ==
LOC: RAD 08:38
PROVIDERS: PCP Internal Medicine; Visit Provider Internal Medicine
DX: Z12.2 Encounter for screening for malignant neoplasm of respiratory organs (principal); Z87.891 Personal history of nicotine dependence; C61 Malignant neoplasm of prostate; R94.8 Abnormal results of function studies of other organs and systems; M54.9 Dorsalgia, unspecified
CPT/HCPCS: 71271; 78306; A9561

== ENCOUNTER 2023-04-19 08:37 | Outpatient (CLI) | payer MEDICARE, SELFPAY ==
[2023-04-19 09:25] VITALS: BMI 24.0
--- NOTE | 2023-04-19 09:35 | ECG_ITS ---
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 Interpretive Statements NAME OF STUDY: LEXISCAN SESTAMIBI STRESS TEST INDICATION: Chest Pain PROCEDURE: At the baseline, the EKG revealed normal sinus rhythm with a right bundle branch block pattern. The baseline heart was 70 bpm with a blood pressue of 166/91 mm of Hg Lexiscan was infused over a period of 20 seconds. A total of 0.4 milligrams of Lexiscan was infused. The stress phase was continued for a total of 5 minutes. Heart rate at the end of the stress phase was 87 bpm with a blood pressure 128/72 mm of Hg. The EKG at the peak infusion revealed no significant changes. Sestamibi was injected 20 seconds after the Lexiscan infusion. Heart rate at the end of the recovery phase was 86 bpm with a blood pressure of 126/73 mm of Hg. CONCLUSION: 1. No significant EKG changes with the LexiScan infusion 2. No LexiScan induced chest pain or cardiac arrhythmia 3. Normal blood pressure and heart rate response 4. Sestamibi/sestamibi perfusion scan pending; see separate report. Electronically Signed On 04-22-2023 18:39:03 CDT by Florin Mcneill M.D. [email or web address]
--- NOTE | 2023-04-19 09:35 | NMCV_ITS ---
NM alexandr perf SPECT r/s* [id number] Ander Odonnell Age: 72 Gender: M : 1950 Exam Date: 04/19/2023 10:08 Ordering Phys: Florin Mcneill MD ([email or web address]) Technologist: AGUSTIN Last Exam Location: [facility] Indications: YAMILE STRESS TEST [facility] IMAGE PROTOCOL Rest/Stress 1 Lexiscan Day Radiopharmaceutical Dose (mCi) Administration Site Administered by Rest: Tc-99m 10.9 IV AGUSTIN Last Sestamibi Stress:Tc-99m 32.5 IV AGUSTIN Last Sestamibi Rest: 19-Apr-2023 60 Discovery 630 Stress: 19-Apr-2023 30 Discovery 630 0.4mg Lexiscan. Images obtained in supine and prone position. SPECT RESULTS Technical Quality: Good Raw Data Analysis: Normal Image Corrections: No attenuation or motion correction applied Summed Stress Score: 1 Summed Rest Score: 2 Summed Difference Score: 0 PERFUSION FINDINGS Fairly uniform myocardial tracer uptake. No significant perfusion abnormalities FUNCTIONAL RESULTS (calculated via Gated SPECT) Stress Image LV EF (%): 76 Stress EDV (mL):72 TID: 1.06 Stress ESV (mL):17 FUNCTIONAL FINDINGS: Segmental wall motion analysis revealing no gross wall motion abnormalities IMPRESSIONS 1. Myocardial perfusion imaging revealing uniform myocardial tracer uptake. 2. Normal LV ejection fraction of 76%. 3. LV wall motion analysis revealing no gross wall motion abnormalities. 4. Normal LV volume Low probability for coronary ischemia, based on the above findings. No similar previous studies are available for comparison Dr Florin Mcneill MD FAC (Electronically Signed) Final Date: 19 April 2023 17:16 S
[2023-04-19] MEDS: regadenoson 0.4 Mg/5 ml Syringe 0.400000000000000022 MG IVP (10:47)
[2023-04-19 11:04] VITALS: BP 126/87; PULSE 68
== END 2023-04-19 08:38 | disposition home or self-care (01) ==
LOC: CDL 08:37
PROVIDERS: PCP Internal Medicine; Visit Provider Internal Medicine Cardiovascular Disease
DX: Z98.61 Coronary angioplasty status (principal)
CPT/HCPCS: 36415; 78452; 93017; 96374; A9500; J2785

== ENCOUNTER → 2023-07-18 14:31 | Outpatient (BNVA) | payer MEDICARE, SELFPAY | PROVIDERS: PCP Internal Medicine; Visit Provider Internal Medicine Cardiovascular Disease | DX: I77.9 Disorder of arteries and arterioles, unspecified (principal); R07.89 Other chest pain; I10 Essential (primary) hypertension; F17.210 Nicotine dependence, cigarettes, uncomplicated | CPT/HCPCS: 99214 ==

== ENCOUNTER 2023-08-21 15:18 | Oncology outpatient (recurring) (ONCR) | payer MEDICARE, SELFPAY | END 2023-09-06 23:59 | disposition home or self-care (01) | LOC: ONCMED 15:18 | PROVIDERS: PCP Internal Medicine; Visit Provider Internal Medicine Hematology & Oncology | DX: C61 Malignant neoplasm of prostate (principal); Z92.3 Personal history of irradiation; Z92.21 Personal history of antineoplastic chemotherapy; Z91.81 History of falling | CPT/HCPCS: 99214 ==

== ENCOUNTER → 2024-01-22 15:21 | Outpatient (BNVA) | payer MEDICARE, SELFPAY | PROVIDERS: PCP Internal Medicine; Visit Provider Internal Medicine Cardiovascular Disease | DX: I77.9 Disorder of arteries and arterioles, unspecified (principal); I10 Essential (primary) hypertension; F17.200 Nicotine dependence, unspecified, uncomplicated | CPT/HCPCS: 99214 ==

== ENCOUNTER 2024-06-20 10:24 | Outpatient (CLI) | payer MEDICARE, SELFPAY ==
--- NOTE | 2024-06-20 10:31 | USR_ITS ---
PROCEDURE INFORMATION: Exam: US Bilateral Noninvasive Physiologic Study of the Lower Extremity Arteries, Limited Exam date and time: 06/20/2024 10:45 AM Age: 73 years old Clinical indication: Condition or disease; Peripheral vascular disease; Additional info: Intermittent claudication TECHNIQUE: Imaging protocol: Bilateral Limited bilateral noninvasive physiologic studies of lower extremity arteries. Waveforms were obtained and evaluated. Images were documented and archived. Exam is limited. COMPARISON: AL bone scan whole body* [id number] 04/17/2023 9:30 AM FINDINGS: Right Ankle-Brachial Index: At the posterior tibial 0.85, dorsalis pedis 0.79, and digit 0.63. Left Ankle-Brachial Index: At posterior tibial 0.87, at the dorsalis pedis 0.89, at the digit 0.71. US/CV ankle brachial index [id number] IMPRESSION: No evidence of stenosis or occlusion in the lower extremity.
== END 2024-06-20 10:25 | disposition home or self-care (01) ==
LOC: RAD 10:28
PROVIDERS: PCP Family Medicine; Visit Provider Family Medicine
DX: I73.9 Peripheral vascular disease, unspecified (principal)
CPT/HCPCS: 93922